=== PATIENT | male | born 1985 | race Caucasian/White ===

== ENCOUNTER 2018-04-04 17:20 | Emergency (ER) | payer BC ==
[2018-04-04] MEDS ORDERED: Ondansetron 4 MG Tab.DIS PO ONE (17:52)
[2018-04-04] MEDS ORDERED: predniSONE 20 MG Tab PO ONE (17:52)
[2018-04-04] MEDS ORDERED: Meclizine 12.5 MG Tab PO ONE (18:40)
--- NOTE | 2018-04-04 19:04 | EDM.PDOC ---
ED HPI GENERAL MEDICAL PROBLEM - General Chief Complaint: Neuro Symptoms/Deficits Stated Complaint: DIZZY WHEN MOVING Time Seen by Provider: 04/04/18 17:37 Source of Information: Reports: Patient, RN Notes Reviewed - History of Present Illness INITIAL COMMENTS - FREE TEXT/NARRATIVE: 32 year old male with onset of vertigo after awakening from sleep a couple of hrs ago. He is currently working nights, slept today after work, awakened a couple of hrs ago with severe vertigo, worse with motion. Has never had this before. Has not been ill. No Hahn. [place] normal this morning when he did go to sleep after working all of last night. - Related Data Allergies Allergy/AdvReac Type Severity Reaction Status Date / Time No Known Allergies Allergy Verified 04/04/18 17:27 Home Meds: Home Meds . [No Known Home Meds] 04/04/18 [History] Past Medical History - Past Health History Medical/Surgical History: Denies Medical/Surgical History Social & Family History - Tobacco Use Smoking Status *Q: Never Smoker - Recreational Drug Use Recreational Drug Use: No ED ROS GENERAL - Review of Systems Review Of Systems: See Below Constitutional: Denies: Fever, Chills, Diaphoresis HEENT: Denies: Ear Discharge, Ear Pain, Sinus Problem, Throat Pain Respiratory: Denies: Shortness of Breath Cardiovascular: Denies: Chest Pain GI/Abdominal: Reports: Nausea, Vomiting. Denies: Abdominal Pain Musculoskeletal: Denies: Neck Pain, Shoulder Pain, Arm Pain Skin: Reports: No Symptoms Neurological: Denies: Headache, Numbness, Tingling, Trouble Speaking, Difficulty Walking, Weakness ED EXAM, DIZZINESS - Physical Exam Exam: See Below General Appearance: Alert, Mild Distress Nystagmus: worsens with head to R Ears: Normal External Exam, Normal Canal, Normal TMs Nose: Normal Inspection Throat/Mouth: Normal Inspection, Normal Oropharynx Head Exam: Atraumatic. No: Facial Swelling Neck: Supple, Full Range of Motion Respiratory/Chest: No Respiratory Distress, Lungs Clear, Normal Breath Sounds Cardiovascular: Regular Rate, Rhythm GI/Abdominal: Soft, Non-Tender Neurological: Alert, No Motor/Sensory Deficits, Oriented x 3 Extremities: Normal Inspection, Normal Range of Motion Skin Exam: Warm, Dry, Intact, Normal Color Course - Vital Signs Last Recorded V/S: Last Vital Signs Temp 98.2 F 04/04/18 17:28 Pulse 80 04/04/18 17:28 Resp 18 04/04/18 17:28 BP 124/78 04/04/18 17:28 Pulse Ox 100 04/04/18 17:28 - Orders/Labs/Meds Meds: Medications Discontinued Medications Generic Name Dose Route Start Last Admin Trade Name Mirta PRN Reason Stop Dose Admin Meclizine HCl 25 mg 04/04/18 18:40 04/04/18 19:02 Antivert PO 04/04/18 18:41 25 mg ONETIME ONE Administration Ondansetron HCl 4 mg 04/04/18 17:52 04/04/18 18:03 Zofran Odt PO 04/04/18 17:53 4 mg ONETIME ONE Administration Prednisone 40 mg 04/04/18 17:52 04/04/18 18:03 Prednisone PO 04/04/18 17:53 40 mg ONETIME ONE Administration - Re-Assessments/Exams Free Text/Narrative Re-Assessment/Exam: 04/04/18 19:54 Sx did improve after zofran 4 mg ODT. Have also given prednisone, 40 PO, antivert 12.5 PO. Discharge instr. as documented. Departure - Departure Time of Disposition: 19:01 Disposition: Home, Self-Care 01 Condition: Fair Clinical Impression: Vertigo - Discharge Information Instructions: Vertigo, [id number] Referrals: PCP,None [Primary Care Provider] - Forms: ED Department Discharge Additional Instructions: rest, move head slowly and carefully, you have been given zofran for nausea and prednisone. antivert has been given 12.5 mg tonight, continue that 12.5 mg twice daily until symptoms of dizziness and vertigo have completely resolved. That is available OTC but you will need to ask a pharmacist for that medication. Follow up clinic if not getting back to normal within 2 to 3 days as expected. Return to ED as needed if symptoms worsening in any way.
== END 2018-04-04 19:10 | disposition home or self-care (01) ==
LOC: JD.ED 17:20
DX: R42 Dizziness and giddiness (principal)
CPT/HCPCS: 99284; A9270; 99283